=== PATIENT | female | born 1955 | race Hispanic/Latino ===

== ENCOUNTER 2018-03-22 20:07 | Emergency (ER) | payer OTHER ==
--- NOTE | 2018-03-22 20:42 | ED PDOC ---
Lower Extremity Pain/Injury Time Seen by Provider: 03/22/18 20:19 Chief Complaint (Nursing): Lower Extremity Problem/Injury Chief Complaint (Provider): left knee pain History Per: Patient Additional Complaint(s): 62-year-old female presents with pain and swelling to back of left knee ongoing for 2 and half weeks. She was seen at urgent care last week and had x-rays of left knee completed which were read as negative. Patient has been taking Motrin and Flexeril but has not noticed any improvement to pain. Patient states pain is worse when she is walking, better with rest. Denies recent travel. No fever or chills. PMD: none Past Medical History Reviewed: Historical Data, Nursing Documentation, Vital Signs Vital Signs: Last Vital Signs Temp 98.0 F 03/22/18 20:14 Pulse 67 03/22/18 20:14 Resp 16 03/22/18 20:14 BP 132/77 03/22/18 20:14 Pulse Ox 98 03/22/18 20:14 - Medical History PMH: No Chronic Diseases - Surgical History Other surgeries: ovarian abscess removal at age 21 - Family History Family History: States: No Known Family Hx - Living Arrangements Living Arrangements: With Family - Social History Current smoker - smoking cessation education provided: No Alcohol: None Drugs: Denies - Home Medications Home Medications: Ambulatory Orders Medication Instructions Recorded Naproxen [Naprosyn] 500 mg PO BID #20 tab 03/22/18 traMADol [Ultram] 50 mg PO Q6H PRN #15 tab 03/22/18 - Allergies Allergies/Adverse Reactions: Allergies Allergy/AdvReac Type Severity Reaction Status Date / Time No Known Allergies Allergy Verified 03/22/18 20:14 Wells Criteria for PE - Wells Criteria for Pulmonary Embolism Clinical Signs and Symptoms of DVT: Yes P.E is #1 Diagnosis, or Equally Likely: No Heart Rate >100: No Immobilization at least 3 days;Surgery previous 4 weeks: No Previous, objectively diagnosed PE or DVT: No Hemoptysis: No Malignancy w/treatment within 6 months, or palliative: No Total Score: 3 Review of Systems ROS Statement: Except As Marked, All Systems Reviewed And Found Negative Constitutional: Negative for: Fever, Chills Cardiovascular: Negative for: Chest Pain Respiratory: Negative for: Cough, Shortness of Breath, SOB with Exertion Gastrointestinal: Negative for: Nausea, Vomiting Musculoskeletal: Positive for: Other (pain to left leg x 2.5 weeks) Physical Exam - Reviewed Nursing Documentation Reviewed: Yes Vital Signs Reviewed: Yes - Physical Exam Appears: Positive for: Well, Non-toxic, No Acute Distress Skin: Positive for: Normal Color. Negative for: Rash Eye Exam: Positive for: Normal appearance Cardiovascular/Chest: Positive for: Regular Rate, Rhythm Respiratory: Positive for: Normal Breath Sounds Back: Positive for: Normal Inspection. Negative for: Vertebral Tenderness Extremity: Positive for: Other (tenderness posterior aspect of left knee with full rom, left calf tenderness, normal distal sensation left lower extremity) Neurologic/Psych: Positive for: Alert, Oriented - ECG O2 Sat by Pulse Oximetry: 98 Pulse Ox Interpretation: Normal - Other Rad Doppler left leg X-Ray: Read By Radiologist X-Ray Interpretation: no DVT, no alvarado's cyst Medical Decision Making Medical Decision Makin62 year old with left leg pain Plan: IM toradol Doppler left leg Patient is aware of US results. All questions answered. Toradol did not help with pain, tramadol 50 mg PO dose given in ED along with rx for same. Patient declined nikki wrap and knee immobilizer as well as crutches. Advised ortho follow up for further evaluation. Disposition - Clinical Impression Clinical Impression: Knee pain - Patient ED Disposition Is Patient to be Admitted: No Counseled Patient/Family Regarding: Studies Performed, Diagnosis, Need For Followup, Rx Given - Disposition Referrals: Bryan Arango MD [Staff Provider] - Disposition: Routine/Home Disposition Time: 21:57 Condition: STABLE Additional Instructions: Ice, rest and elevate affected area. Take prescription meds as directed as needed for pain. Follow-up with orthopedist for further evaluation. Prescriptions: Naproxen [Naprosyn] 500 mg PO BID #20 tab traMADol [Ultram] 50 mg PO Q6H PRN #15 tab PRN Reason: Pain, Moderate (4-7) Instructions: Active Range of Motion Exercises, Knees and Ankles, Stretching Exercises for Your Lower Body, Calf Stretches, Hamstring Stretches, Knee Pain ( DC) Forms: [employer] (Korean)
--- NOTE | 2018-03-22 21:48 | US ---
EXAM: US Duplex Left Lower Extremity Veins CLINICAL HISTORY: 62 years old, female; Pain; Leg, lower; Left; Additional info: Pain, swelling left leg TECHNIQUE: Real-time duplex ultrasound scan of the left lower extremity veins integrating B-mode two-dimensional vascular structure, Doppler spectral analysis, color flow Doppler imaging and compression. COMPARISON: No relevant prior studies available. FINDINGS: Deep veins: Normal color and spectral Doppler flow. Normal compressibility. No deep vein thrombosis. Superficial veins: No thrombosis. Soft tissues: No popliteal cyst. IMPRESSION: No evidence of DVT within left lower extremity.
[2018-03-22 22:10] VITALS: BP 130/78; PULSE 77; RESP 15; TEMP 98.5
[2018-03-22 23:11] VITALS: O2SAT 98
== END 2018-03-22 22:10 | disposition home or self-care (01) ==
LOC: H.ER 20:07
DX: M25.561 Pain in right knee (principal)
CPT/HCPCS: 93971; 96372; 99283; J1885